=== PATIENT | male | born 1970 | race Caucasian/White ===

== ENCOUNTER 2019-08-01 20:29 | Emergency (ER) | payer BC ==
[~2019-08-01 20:29] MED LIST: Iopamidol 370 76% 100 ML VIAL ONE
[2019-08-01] MEDS ORDERED: Ondansetron PF 4 MG/2 ML Vial ONE (21:36)
[2019-08-01 21:37] LABS: #Basophils 0.1 thou/uL (0.0-0.2); #Eosinphils 0.4 thou/uL (0.0-0.7); #Lymphocytes 3.6 thou/uL (1.20-3.40); #Monocytes 0.7 thou/uL (0.11-0.59); #Neutrophils 6.9 thou/uL (1.40-6.50); %Basophils 0.8 % (0.0-1.0); %Eosinophils 3.1 % (0.0-10.0); %Lymphocytes 30.7 % (21.0-51.0); %Monocytes 6.2 % (0.0-10.0); %Neutrophils 59.2 % (42.0-75.0); Hemoglobin 15.9 g/dL (14.0-18.0); Mean Corpuscular HGB CONC 35.3 g/dL (32.0-36.0); Mean Corpuscular Hemoglobin 32.7 pg (27.0-31.0); Mean Corpuscular Volume 92.6 fL (78.0-98.0); Mean Platelet Volume 6.9 fL (7.4-10.4); Platelet Count 371 thou/uL (130-400); RBC Distribution Width 11.4 % (11.5-14.5); Red Blood Cell (RBC) Count 4.86 mill/uL (4.70-6.10); White Blood Cell (WBC) Count 11.7 thou/uL (4.8-10.8)
[2019-08-01 22:07] LABS: ALT (SGPT) 85 U/L (8-55); AST (SGOT) 62 U/L (5-34); Albumin 4.6 g/dL (3.5-5.0); Alkaline Phosphatase 53 U/L (40-110); Anion Gap 15 mmol/L (10-20); BUN (Urea Nitrogen) 14 mg/dL (8.9-20.6); Bilirubin, Total 0.8 mg/dL (0.2-1.2); Calc. Creatinine Clearance 0 mL/min (70-130); Calcium 9.5 mg/dL (7.8-10.44); Carbon Dioxide 28 mmol/L (22-29); Chloride 96 mmol/L (98-107); Estimated GFR-MDRD 73; Globulin 3.2 g/dL (2.4-3.5); Glucose 95 mg/dL (70-105); Lipase 65 U/L (8-78); Protein, Total 7.8 g/dL (6.0-8.3); Sodium 136 mmol/L (136-145)
[2019-08-01] MEDS ORDERED: Potassium Chloride 20 MEQ TAB ONE (22:23)
[2019-08-01] MEDS ORDERED: Milk Of Magnesia 30 ML UDCUP ONE (22:23)
[2019-08-01] MEDS ORDERED: Lidocaine Viscous Sol 2% 15 ml UD Cup ONE (22:23)
[2019-08-01 22:34] LABS: Bilirubin Negative (Negative); Blood, Urine Negative (Negative); Clarity Clear (Clear); Glucose, Urine (Dipstick) Normal (Negative); Leukocyte Negative Leu/uL (Negative); Nitrite Negative (Negative); Protein, Urine (Dipstick) Negative (Neg-Trace); Urobilinogen Normal mg/dL (Less than 2)
--- NOTE | 2019-08-01 22:44 | CT ---
CT Abdomen Pelvis W Con: 08/01/2019 10:17 PM CLINICAL INFORMATION: Epigastric abdominal pain COMPARISON: None. TECHNIQUE: Multiple contiguous axial images were obtained and a CT of the abdomen and pelvis with IV contrast. C oronal and sagittal reformats were performed. FINDINGS: Lower Chest: within normal limits. Abdomen: Liver: within normal limits. Bile Ducts: Normal caliber. Gallbladder: No calcified gallstones. Normal caliber wall. Pancreas: within normal limits. Spleen: within normal limits. Adrenals: within normal limits. Kidneys: 4.0 cm cyst in the right kidney. Pelvis: Reproductive Organs: No pelvic masses. Ureters: within normal limits. Bladder: within normal limits. Peritoneum: No ascites or free air, no fluid collection. Bowel: Normal caliber. Normal appendix. Scattered diverticula in the colon. Mesentery and Retroperitoneum: No enlarged mesenteric or retroperitoneal lymph nodes. Vessels: Normal. Abdominal Wall: within normal limits. Bones: Degenerative changes in the spine. IMPRESSION: 1. No evidence of acute intraabdominal or pelvic abnormality. 2. Diverticulosis
== END 2019-08-02 00:05 | disposition home or self-care (01) ==
LOC: ERS 20:29
DX: R11.2 Nausea with vomiting, unspecified (principal); F17.220 Nicotine dependence, chewing tobacco, uncomplicated
CPT/HCPCS: 36415; 74177; 80053; 81003; 82274; 83690; 85025; 93005; 96361; 96374; J2405; Q9967